=== PATIENT | male | born 1965 | race Two or more races ===

== ENCOUNTER 2020-08-09 14:15 | Inpatient (IN) | payer OTHER ==
[~2020-08-09] VITALS: Ht 160 cm; Wt 69.9 kg
[2020-08-11] MEDS ORDERED: DOLOGEN CAPLET1 EACH (08:44)
[2020-08-11] MEDS ORDERED: DOXYCYCLINE HY100 M2 (08:44)
[2020-08-11] MEDS ORDERED: EZETIMIBE-SIMV1 EAC1 (08:44)
[2020-08-14] MEDS ORDERED: DECADRON6 MG PO (11:36)
== END 2020-08-14 18:32 | disposition home or self-care (01) | DRG 177 ==
LOC: ER 14:15 → MEDJ 23:35
PROVIDERS: ADMIT Internal Medicine; ATTEND Internal Medicine
PROC: 8E0ZXY6 Isolation (ICD-10-PCS; 2020-08-09)
PROC: 4A12X4Z Monitoring of Cardiac Electrical Activity, External Approach (ICD-10-PCS; 2020-08-09)
PROC: XW033E5 Introduction of Remdesivir Anti-infective into Peripheral Vein, Percutaneous Approach, New Technology Group 5 (ICD-10-PCS; principal; 2020-08-10)
PROC: BW24ZZZ Computerized Tomography (CT Scan) of Chest and Abdomen (ICD-10-PCS; 2020-08-10)
DX: U07.1 COVID-19 (principal); J12.89 Other viral pneumonia; R09.02 Hypoxemia; E78.5 Hyperlipidemia, unspecified